=== PATIENT | female | born 1990 | race African-American/Black ===

== ENCOUNTER 2021-11-18 09:39 | Inpatient (IN) ==
[2021-11-18 22:33] LABS: Basophils % 0.5 % (0.0-0.8); Eosinophils # 0.1 10*3/uL (0.0-0.87); Eosinophils % 1.6 % (0.00-10.9); Hematocrit 37.6 VOL% (35.7-47.0); Hemoglobin 11.8 GM/DL (12.0-16.0); Immature Granulocytes % 0.5 %; Immature Granulocytes Absolute 0.03 #; Lymphocytes # 1.7 10*3/uL (1.4-4.0); Lymphocytes % 26.4 % (21.3-54.2); Mean Corpuscular HGB Conc 31.4 GM/DL (32-36); Mean Platelet Volume 12.1 FL (9.6-12.0); Monocytes # 0.5 10*3/uL (0.11-0.8); Monocytes % 7.8 % (1.7-12.7); Neutrophils % 63.2 % (38.7-73.9); Platelet Count 255 T/CUMM (130-400); Red Blood Count 4.88 MC/CUMM (3.8-5.5); Red Cell Distribution Width 16.2 % (9.3-17.3); White Blood Count 6.4 T/CUMM (4-12)
[2021-11-18 22:53] LABS: Eosinophils 1 % (0-10); Lymphocytes 24 % (20-55); Platelet Estimate Adequate; Total Cells Counted 100
[2021-11-19] MEDS ORDERED: OXYTOCIN/LR 20 UNIT/1,000 ML BAG IV ONE ×3 (00:19→10:25)
[2021-11-19] MEDS ORDERED: LACTATED RINGERS 250 ML IV ONE (00:19)
[2021-11-19] MEDS ORDERED: miSOPROStoL 200 MCG TABLET RECTAL PRN ×2 (00:19→03:30)
[2021-11-19] MEDS ORDERED: ONDANSETRON 4 MG/2 ML VIAL IV PRN ×2 (00:19→10:25)
[2021-11-19] MEDS ORDERED: LACTATED RINGERS 500 ML IV PRN (00:19)
[2021-11-19] MEDS ORDERED: METHYLERGONOVINE 0.2 MG/1 ML AMP IM PRN ×2 (00:19→03:30)
[2021-11-19] MEDS ORDERED: TRANEXAMIC ACID 1,000 MG in SODIUM CHLORIDE 0.9% 100 ML IV PRN ×2 (00:19→03:30)
[2021-11-19] MEDS ORDERED: CARBOPROST TROMETHAMINE 250 MCG/ML AMP IM PRN ×2 (00:19→03:30)
[2021-11-19 00:38] LABS: Alanine Aminotransferase 27 U/L (13-56); Albumin 2.2 G/DL (3.4-5.0); Alkaline Phosphatase 229 U/L (45-117); Aspartate Amino Transferase 23 U/L (0-37); Bilirubin,Total < 0.39 MG/DL (0.20-1.00); Blood Urea Nitrogen 9 MG/DL (7-18); Calcium 8.8 MG/DL (8.5-10.1); Carbon Dioxide 21 MMOL/L (21-32); Chloride 104 MMOL/L (98-107); Glucose 113 MG/DL (74-106); Osmolality,Calculated 267.2 MOS/KG (273-304); Potassium 3.9 MMOL/L (3.5-5.1); Sodium 134 MMOL/L (136-145); Total Protein 6.8 G/DL (6.4-8.2)
[2021-11-19] MEDS ORDERED: CITRIC ACID/SODIUM CITRATE 30 ML UDCUP PO ONE (03:30)
[2021-11-19] MEDS ORDERED: FAMOTIDINE 20 MG/2 ML VIAL IV ONE (04:15)
[2021-11-19] MEDS: LACTATED RINGERS 1,000 ML IV SCH ×2 (06:32→08:57)
[2021-11-19] MEDS ORDERED: OXYTOCIN/LR 30 UNIT/1,000 ML BAG IV ONE (07:06)
[2021-11-19] MEDS ORDERED: OXYTOCIN 10 UNIT/ML VIAL IM ONE (07:06)
[2021-11-19] MEDS ORDERED: TRANEXAMIC ACID 1,000 MG/10 ML VIAL ONE (07:41)
[2021-11-19] MEDS ORDERED: SODIUM CHLORIDE 0.9% 0 ML IV ONE (07:41)
[2021-11-19] MEDS ORDERED: miSOPROStoL 200 MCG TABLET ONE (07:41)
[2021-11-19] MEDS ORDERED: CARBOPROST TROMETHAMINE 250 MCG/ML AMP IM ONE (07:42)
[2021-11-19] MEDS ORDERED: BUPIVACAINE 0.5% 50 ML VIAL ONE (07:57)
[2021-11-19] MEDS ORDERED: buprenorphine HCL 0.3 MG/ML VIAL ONE (09:05)
[2021-11-19] MEDS ORDERED: ONDANSETRON 4 MG/2 ML VIAL ONE (09:05)
[2021-11-19] MEDS ORDERED: ePHEDrine 50 MG/ML VIAL ONE (09:32)
[2021-11-19] MEDS ORDERED: LACTATED RINGERS 1,000 ML IV ONE (09:46)
[2021-11-19] MEDS ORDERED: CALCIUM CHLORIDE 1,000 MG/10 ML VIAL IV ONE (09:54)
[2021-11-19] MEDS ORDERED: MIDAZOLAM 2 MG/2 ML VIAL ONE (09:57)
[2021-11-19 10:07] LABS: Cord Arterial Blood HCO3 20.5 MMOL/L
[2021-11-19 10:10] LABS: Cord Venous Blood HCO3 21.7 MMOL/L; Cord Venous Blood PO2 21.2
[2021-11-19 10:10] LABS: Bacteria,Urine Occasional /HPF (Few); RBC,Urine 1 /HPF (0-4); Squamous Epithelial Cell,Urine Occasional /HPF (0-10); Urine Appearance Clear (Clear); Urine Color Yellow (Yellow); Urine Specific Gravity 1.015 (1.001-1.035)
[2021-11-19 10:11] LABS: Bilirubin,Urine Negative (Negative); Blood, Urine Trace mg/dL (Negative); Glucose,Urine (UA) Negative (Negative); Ketones,Urine Negative (Negative); Nitrite,Urine Negative (Negative); Protein,Urine Negative (Negative); Urine Urobilinogen 0.2 eU/dL (<2.0)
[2021-11-19] MEDS ORDERED: ACETAMINOPHEN 325 MG TABLET PO PRN (10:25)
[2021-11-19] MEDS ORDERED: IBUPROFEN 800 MG TABLET PO PRN (10:25)
[2021-11-19] MEDS ORDERED: RHO(D) IMMUNE GLOBULIN 300 MCG SYRINGE IM ONE (10:25)
[2021-11-19] MEDS ORDERED: SIMETHICONE CHEW 80 MG TABLET PO PRN (10:25)
[2021-11-19] MEDS ORDERED: LACTATED RINGERS 1,000 ML IV SCH (10:30)
[2021-11-19] MEDS ORDERED: ceFAZolin 2,000 MG in SODIUM CHLORIDE 0.9% 100 ML IV SCH (17:00)
[2021-11-19] MEDS: KETOROLAC 30 MG/1 ML VIAL IV SCH ×2 (17:17→22:59)
[2021-11-19] MEDS: ACETAMINOPHEN 500 MG TABLET PO SCH ×2 (17:18→22:51)
[2021-11-19 18:28] LABS: Basophils % 0.3 % (0.0-0.8); Eosinophils # 0.1 10*3/uL (0.0-0.87); Eosinophils % 1.3 % (0.00-10.9); Hematocrit 36.1 VOL% (35.7-47.0); Hemoglobin 11.1 GM/DL (12.0-16.0); Immature Granulocytes % 0.3 %; Immature Granulocytes Absolute 0.02 #; Lymphocytes # 1.4 10*3/uL (1.4-4.0); Lymphocytes % 20.2 % (21.3-54.2); Mean Corpuscular HGB Conc 30.7 GM/DL (32-36); Mean Corpuscular Volume 78.3 FL (87-102); Mean Platelet Volume 11.3 FL (9.6-12.0); Monocytes # 0.5 10*3/uL (0.11-0.8); Monocytes % 7.7 % (1.7-12.7); Neutrophils % 70.2 % (38.7-73.9); Platelet Count 236 T/CUMM (130-400); Red Blood Count 4.61 MC/CUMM (3.8-5.5); Red Cell Distribution Width 16.2 % (9.3-17.3); White Blood Count 6.9 T/CUMM (4-12)
[2021-11-19 21:07] LABS: Burr Cells Few; Platelet Estimate Normal
[2021-11-19 21:08] LABS: Hypochromia Slight; Microcytosis Slight
[2021-11-19] MEDS: DOCUSATE SODIUM 100 MG CAPSULE PO SCH (21:59)
[2021-11-20] MEDS ORDERED: diphenhydrAMINE 50 MG/1 ML VIAL ONE (01:38)
[2021-11-20] MEDS ORDERED: ceFAZolin 2,000 MG/50 ML DUPLEX IV ONE (01:39)
[2021-11-20] MEDS ORDERED: diphenhydrAMINE 50 MG/1 ML VIAL IV PRN (01:44)
[2021-11-20] MEDS: KETOROLAC 30 MG/1 ML VIAL IV SCH (04:57)
[2021-11-20] MEDS: ACETAMINOPHEN 500 MG TABLET PO SCH (04:58)
[2021-11-20 05:46] LABS: Basophils % 0.4 % (0.0-0.8); Eosinophils # 0.1 10*3/uL (0.0-0.87); Hematocrit 32.3 VOL% (35.7-47.0); Hemoglobin 9.9 GM/DL (12.0-16.0); Immature Granulocytes % 0.4 %; Immature Granulocytes Absolute 0.02 #; Lymphocytes # 1.1 10*3/uL (1.4-4.0); Lymphocytes % 21.7 % (21.3-54.2); Mean Corpuscular HGB Conc 30.7 GM/DL (32-36); Mean Corpuscular Volume 79.8 FL (87-102); Mean Platelet Volume 11.2 FL (9.6-12.0); Monocytes # 0.5 10*3/uL (0.11-0.8); Monocytes % 10.2 % (1.7-12.7); Neutrophils % 65.3 % (38.7-73.9); Platelet Count 195 T/CUMM (130-400); Red Blood Count 4.05 MC/CUMM (3.8-5.5); Red Cell Distribution Width 16.3 % (9.3-17.3); White Blood Count 5.1 T/CUMM (4-12)
[2021-11-20] MEDS: DOCUSATE SODIUM 100 MG CAPSULE PO SCH ×2 (09:57→21:17)
[2021-11-20] MEDS: MAGNESIUM HYDROXIDE SUSP 30 ML UDCUP PO PRN ×2 (09:58→21:18)
[2021-11-20] MEDS: MULTIVITAMIN (PRENATAL) TABLET PO SCH (09:58)
[2021-11-21] MEDS: MULTIVITAMIN (PRENATAL) TABLET PO SCH (08:42)
[2021-11-21] MEDS: MAGNESIUM HYDROXIDE SUSP 30 ML UDCUP PO PRN (08:42)
[2021-11-21] MEDS: DOCUSATE SODIUM 100 MG CAPSULE PO SCH (08:42)
[2021-11-21 12:50] VITALS: BP 129/71
== END 2021-11-21 18:45 | disposition home or self-care (01) | DRG 540 ==
LOC: N.LDOUT 09:39 → N.LD 09:40 → N.OB 11-19 13:20
PROVIDERS: ADMIT Obstetrics & Gynecology; ATTEND Obstetrics & Gynecology
PROC: LDCSECT (ICD-10-PCS; 2021-11-19 09:00)